=== PATIENT | female | born 1960 | race Caucasian/White ===

== ENCOUNTER 2016-08-03 22:42 | Emergency (ER) | payer OTHER ==
[~2016-08-03] VITALS: Ht 154.9 cm; Wt 86.2 kg
[~2016-08-03 22:42] MED LIST: ALBUTEROL0.09 MG/A1 INH; CYCLOBENZAPRINE5 M2 PO; DIAZEPAM5 M1 PO; ENDOCET 325 MG-1 TA1 PO; FLEXERIL PO; GUAFENESIN400 MG PO; IBUPROFEN800 M1 PO; MEDROL DOSEPAK1 PAC PO; MEDROL4 M2 PO; MOBIC15 MG PO; OXYCODONE HCL10 M2 PO; OXYCODONE HCL5 M2 PO; PERCOCET 5-3251 EACH PO; ZITHROMAX Z-PA250 M1 PO; ZOFRAN ODT4 MG SL
--- NOTE | 2016-08-03 23:51 | ED EYE COMPLAINT ---
History of Present Illness General Chief Complaint: Eye Problems Stated Complaint: LT EYE SWOLLEN Source: patient, family Exam Limitations: no limitations Vital Signs & Intake/Output Vital Signs & Intake/Output Vital Signs Date Time Temp Pulse Resp B/P B/P Pulse O2 O2 Flow FiO2 Mean Ox Delivery Rate 08/03 2353 Room Air 08/03 2305 98.2 80 16 121/81 95 Room Air ED Intake and Output 08/04 0000 08/03 1200 Intake Total 0 Output Total Balance 0 Intake, Oral 0 Patient 190 lb Weight Weight Reported by Patient Measurement Method Allergies Coded Allergies: NO KNOWN ALLERGIES (03/17/11) Reconcile Medications Cyclobenzaprine HCl 5 MG TABLET 1 TAB PO TIDPRN PRN PAIN Cyclobenzaprine HCl 5 MG TABLET 1 TAB PO TID PRN muscle relaxant may cause drowsiness Diazepam 5 MG TABLET 1 TAB PO QPM SLEEP (Reported) Ibuprofen 800 MG TABLET 1 TAB PO TID PRN PAIN Methylprednisolone. (Medrol) 4 MG TAB.DS.PK 1 DP PO AD INFLAMMATION Naphazoline HCl/Pheniramine (Allergy Eye Drops) 0.025 %-0.3 % DROPS 1 GTT OPH Q6H ALLERGIC CONJUNCTIVITIS Oxycodone HCl 10 MG TABLET 1 TAB PO TIDPRN PRN PAIN (Reported) Oxycodone HCl/Acetaminophen (Percocet 5-325 MG Tablet) 5 MG-325 MG TABLET 1 TAB PO BID pain Triage Note: TRIAGE: CONCERNED SHE SCRATCHED CORNEA OF LEFT EYE. WAS OUT IN SUN ALL DAY TODAY WITHOUT SUNGLASSES, NOTABLE REDNESS/SUNBURN TO BOTH EYE AREAS. REDNESS TO LEFT SCLERA. REPORTS SLIGHT BLURRINESS TO L EYE WHEN IT GET WATERY. PAIN 5/10 AT THIS TIME. Triage Nurses Notes Reviewed? yes HPI: Patient was at the pool today and felt lotion into her left eye. Patient attempted to wipe it out with her towel. Since then she had a burning sensation or left eye with clear fluid discharge. There is no blurry vision. Patient denies any foreign body sensation. Patient states he feels a little bit better when she closes her eye and her symptoms are worsened when she opened up her eye. She rates the sensation at 5 out of 10. Patient tried to use Visine without relief. Past History Travel History Traveled to [place] past 21 day No Medical History Any Pertinent Medical History? 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 No Review of Systems Review of Systems Constitutional: Reports: no symptoms. Eyes: Reports: see HPI. Respiratory: Reports: no symptoms. Cardiovascular: Reports: no symptoms. GI: Reports: no symptoms. Musculoskeletal: Reports: no symptoms. Neurological/Psychological: Reports: no symptoms. Immunologic/Allergic: Reports: no symptoms. Physical Exam General Appearance: well developed/nourished, alert, awake, anxious, mild distress General Inspection: normal inspection Eyelid: normal inspection, everted for exam Conjunctiva/Sclera: normal inspection Cornea: normal inspection, examined w/fluorescein EOM: intact Pupil: normal accommodation, normal pupil, PERRL Anterior Chamber: normal inspection General Inspection: normal inspection Eyelid: normal inspection Conjunctiva/Sclera: normal inspection EOM: intact Pupil: normal accommodation, normal pupil, PERRL Physical Exam Mouth/Throat: normal mouth inspection, pharynx normal Neck: normal inspection, supple, full range of motion Cardiovascular/Respiratory: normal breath sounds, normal peripheral pulses, regular rate/rhythm Progress Differential Diagnosis: corneal abrasion, corneal foreign body, conjunctivitis Plan of Care: EYE DROPS Departure Departure Disposition: HOME OR SELF CARE Condition: Stable Clinical Impression Primary Impression: Allergic conjunctivitis Referrals: DAVID WILLETT (PCP/Family) Additional Instructions: Usual cool washcloth on your eyes. Use the eyedrops as prescribed. Return for any concerns. Departure Forms: Customer Survey General Discharge Information Prescriptions: Current Visit Scripts Naphazoline HCl/Pheniramine (Allergy Eye Drops) 1 GTT OPH Q6H #5 ML
[2016-08-03] MEDS ORDERED: ALLERGY EYE DRO15 ML OPH (23:58)
[2016-08-04 00:08] VITALS: BP 124/78
== END 2016-08-04 00:11 ==
LOC: ERH 22:42
DX: H10.12 Acute atopic conjunctivitis, left eye (principal)